=== PATIENT | female | born 1975 | race American Indian/Alaskan Native ===

== ENCOUNTER 2016-09-11 | Emergency (ER) | payer MEDICAID ==
[2016-09-11] MEDS ORDERED: BOOSTRIX IM ONE (01:19)
[2016-09-11 01:44] LABS: Basophils % (Auto) 0.9 % (0.0-1.8); Eosinophils % (Auto) 0.4 % (0.0-4.3); Hematocrit 39.9 % (30.3-42.9); Hemoglobin 13.2 gm/dl (10.1-14.3); Mean Corpuscular HGB Conc 33 % (30-34); Mean Corpuscular Hemoglobin 29 pg (28-32); Mean Corpuscular Volume 88 fl (79-97); Platelet Count 254 K/mm3 (140-440); Red Blood Count 4.55 M/mm3 (3.65-5.03); Red Cell Distribution Width 14.7 % (13.2-15.2); White Blood Count 6.4 K/mm3 (4.5-11.0)
[2016-09-11 01:51] LABS: Anion Gap 24 mmol/L; BUN/Creatinine Ratio 6.66; Blood Urea Nitrogen 4 mg/dL (7-17); Calcium 9.1 mg/dL (8.4-10.2); Carbon Dioxide 19 mmol/L (22-30); Glucose 107 mg/dL (65-100); Potassium 3.8 mmol/L (3.6-5.0); Sodium 146 mmol/L (137-145)
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
[2016-09-11] MEDS ORDERED: TRIPLE ANTIBIOTIC TP ONE (05:27)
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
[2016-09-11] MEDS ORDERED: NORCO 5/325 PO ONE (06:04)
--- NOTE | 2016-09-11 09:09 | XRay Report ---
Left ankle 3 views: History: Ankle pain fall. Findings: Fracture of medial malleolus. No displacement of fracture fragments. No dislocation of the ankle. Impression: Fracture medial malleolus left tibia.
[2016-09-11] MEDS ORDERED: MOTRIN PO ONE (10:45)
[2016-09-11 11:08] VITALS: BP 108/66
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
== END 2016-09-11 11:07 | disposition home or self-care (01) ==
LOC: ED
DX: S82.302A Unspecified fracture of lower end of left tibia, initial encounter for closed fracture (principal); F17.200 Nicotine dependence, unspecified, uncomplicated; V99.XXXA Unspecified transport accident, initial encounter; Y93.39 Activity, other involving climbing, rappelling and jumping off; Y99.8 Other external cause status; Y92.89 Other specified places as the place of occurrence of the external cause; F10.129 Alcohol abuse with intoxication, unspecified
CPT/HCPCS: 29515; 36415; 70450; 72100; 72125; 73610; 80048; 84703; 85025; 90715; 99285; G0480; 80320; A6250